=== PATIENT | female | born 1990 | race Two or more races ===

== ENCOUNTER 2016-06-15 00:18 | Emergency (ER) | payer BC, OTHER ==
[~2016-06-15] VITALS: Ht 152.4 cm; Wt 61.2 kg
[~2016-06-15 00:18] MED LIST: HYCUDL5 PO; PERM1CRE EXT
[2016-06-15 00:29] VITALS: TEMP 36.9; O2SAT 98; Ht 152.4 cm; Wt 61.2 kg
--- NOTE | 2016-06-15 00:50 | EMERGENCY ROOM VISIT NOTE ---
History Report prepared by Mandiibdeep: Joy Gagnon Under the Supervision of: Dr. Zohreh Puentes D.O. First contact with patient: 00:21 Chief Complaint: ALCOHOL OVERDOSE Stated Complaint: ALCOHOL OVERDOSE History of Present Illness The patient is a 25 year old female who presents to the Emergency Room with complaints of an episode of alcohol intoxication beginning just [employer]. Per EMS the patient was found on the bench outside of the library sleeping. Ems reports that the patient was uncooperative for them and they note that she is from [place]. Nursing staff notes that the patient believes that it is 2006. Nursing notes disorientation. Source of History: patient Onset: just [employer]ER Position: other (global) Quality: other (intoxication) Timing: other (episode) Note: Pt complains of disorientation. Review of Systems See HPI for pertinent positives & negatives. A total of 10 systems reviewed and were otherwise negative. Past Medical & Surgical Medical Problems: (1) No Known Active Medical Problems Family History No pertinent family history stated. Social History Alcohol Use: occasionally Marital Status: single Current/Historical Medications No Active Prescriptions or Reported Meds Allergies Coded Allergies: No Known Allergies (Unverified Allergy, NONE, 12/03/08) Physical Exam Vital Signs Date Time Temp Pulse Resp B/P Pulse Ox O2 Delivery O2 Flow Rate FiO2 06/15/16 05:13 65 18 110/69 98 06/15/16 04:16 79 06/15/16 03:55 64 16 85/36 94 Room Air 06/15/16 01:36 94 16 99/53 97 Room Air 06/15/16 00:49 99 06/15/16 00:29 98 Room Air 06/15/16 00:29 36.9 107 19 130/69 98 Room Air Physical Exam General: Smells of alcohol, has slurred speech, unable to complete a coherent sentence. HEENT: Head - normocephalic and atraumatic Pupils are equal, round, and reactive to light. Pupils are 2mm and reactive to light. Extraocular eye muscles are intact, and sclera are anicteric. Nose - moist nasal mucosa without discharge. Mouth - moist buccal mucosa. Oropharynx is nonerythematous and there is no tonsillar exudate or edema noted. Neck: Supple; no JVD, nuchal rigidity, cervical lymphadenopathy. Heart: Regular rate and rhythm. There is a normal S1 and S2 with no murmurs, clicks, or gallops appreciated. Lungs: Clear to auscultation bilaterally with no wheezes, rales, or rhonchi. Abdomen: Soft, completely nontender, nondistended, with good bowel sounds. There are no palpable pulsatile masses or hepatosplenomegaly. There is no guarding, rigidity, or rebound noted. Extremities: No evidence of cyanosis, clubbing, or edema. There are easily palpable peripheral pulses. Skin: warm and dry with good turgor and no rashes. Medical Decision & Procedures Laboratory Results 06/15/16 00:25 Test 06/15/16 00:25 Anion Gap 12.0 mmol/L (3-11) Est Creatinine Clear Calc Drug Dose 71.2 ml/min Estimated GFR () 92.8 Estimated GFR (Non- 80.0 BUN/Creatinine Ratio 14.9 (10-20) Calcium Level 9.2 mg/dl (8.5-10.1) Ethyl Alcohol mg/dL 295.0 mg/dl (0-3) Laboratory results per my review. ED Course 0021: Past medical records reviewed. The patient was evaluated in room B4B. A complete history and physical exam was performed. Laboratory studies were drawn as above. The patient and was observing the cardiac tech and pulse oximeter. She was placed in the prone position to avoid aspiration. The patient asked me to speak with her brother who is a nurse practitioner. He is currently in [place] and unable to pick her up. 0231: I reevaluated the patient. Her blood pressure is low with the systolic in the 70s but she is easily aroused. Heart rate was normal 0355: The patient is sleeping at this time and hemodynamically stable. 0501: I reevaluated the patient. She is wide awake and calling a friend. 0505: The patient's friend is here. 0514: Upon reevaluation, the patient is doing well. I discussed findings and results with the patient and her friend. They verbalized agreement of the treatment plan. The patient was discharged home. Medical Decision The patient is a 25 year old female who presents to the ED with an alcohol overdose. Differential diagnosis includes alcohol overdose, drug intoxication, hypoglycemia, head injury. LABS: Alcohol 295 Glucose 122 Potassium 3.3 Normal Renal Function This is a 25-year-old female patient who is visiting the area from [place]. She was found significantly intoxicated outside laboratory. The patient denies any other drug use. Initially, she had been uncooperative for the police and security but then was able to calm down. She was observed here on a cardiac tech and pulse oximeter until she was more sober. Once she was fully awake, I discussed the situation with her. I encouraged her to avoid such excessive alcohol use in the future. Impression Primary Impression: Alcohol overdose Scribe Attestation The scribe's documentation has been prepared under my direction and personally reviewed by me in its entirety. I confirm that the note above accurately reflects all work, treatment, procedures, and medical decision making performed by me. Departure Information Dispostion Home / Self-Care Prescriptions No Active Prescriptions or Reported Meds Referrals No Doctor, Assigned (PCP) Forms HOME CARE DOCUMENTATION FORM, IMPORTANT VISIT INFORMATION Patient Instructions ED Overdose Alcohol, My [facility] Additional Instructions Avoid such excessive alcohol use in the future Take plenty of clear liquids today Use tylenol for headache. Rest
[2016-06-15 00:53] LABS: BUN/CREATININE RATIO 14.9 (10-20); CALCIUM 9.2 mg/dl (8.5-10.1); CREATININE 0.97 mg/dl (0.60-1.20); POTASSIUM 3.3 mmol/L (3.5-5.1)
[2016-06-15 05:13] VITALS: BP 110/69; PULSE 65; O2SAT 98
== END 2016-06-15 05:11 | disposition home or self-care (01) ==
LOC: EDBD 00:18 → C.EDB 00:20
DX: T51.0X1A Toxic effect of ethanol, accidental (unintentional), initial encounter (principal); F10.129 Alcohol abuse with intoxication, unspecified; Y90.8 Blood alcohol level of 240 mg/100 ml or more